=== PATIENT | female | born 1940 | race Two or more races ===

== ENCOUNTER → 2018-11-07 | Day surgery (SDC) | payer OTHER ==
[~2018-11-07] MED LIST: ARICEPT5 MG PO; BETIMOL5 M1 OP; COZAAR25 MG PO; CRESTOR40 MG PO
== END | disposition home or self-care (01) ==
LOC: ADM 11-05 14:30 → CIR.AMB 07:30
DX: N84.0 Polyp of corpus uteri (principal)